=== PATIENT | female | born 1950 | race Caucasian/White ===

== ENCOUNTER 2022-05-02 09:17 | Day surgery (SDC) | payer MEDICARE ==
[~2022-05-02] VITALS: Ht 162.6 cm; Wt 88.1 kg
[2022-05-02] VITALS (8 sets, daily range): BP systolic 110–134; BP diastolic 46–61
[2022-05-02] MEDS ORDERED: normal saline 1000ml 1,000 ML IV SCH (09:44)
[2022-05-02] MEDS ORDERED: vancomycin 1,500 MG in NS 300ml IV soln IV ONE (09:45)
[2022-05-02] MEDS ORDERED: ceFAZolin inj. 2,000 MG in dextrose 5%-water 100 ML IV ONE (09:45)
[2022-05-02] MEDS ORDERED: ALBU17AE26 INH (09:52)
[2022-05-02] MEDS ORDERED: LEVO125T8 PO (09:52)
[2022-05-02] MEDS ORDERED: CARV25TA2 PO (09:52)
[2022-05-02] MEDS ORDERED: AMIT25TA9 PO (09:52)
[2022-05-02] MEDS ORDERED: HYDR-3972 PO (09:52)
[2022-05-02] MEDS ORDERED: FENO160T PO (09:52)
[2022-05-02] MEDS ORDERED: SUCR1TAB PO (09:52)
[2022-05-02] MEDS ORDERED: SPIR25TA5 PO (09:52)
[2022-05-02] MEDS ORDERED: UMEC1DIS INH (09:52)
[2022-05-02] MEDS ORDERED: ALPR0.255 PO (09:52)
[2022-05-02 10:06] LABS: BASOPHILS % (AUTO) 1.4 % (0-1); EOSINOPHILS # (AUTO) 0.1 X10'3 (0-0.9); EOSINOPHILS % (AUTO) 2.5 % (0-6); HEMATOCRIT 40.3 % (35.0-45.0); HEMOGLOBIN 13.9 g/dl (12.0-16.0); LYMPHOCYTES # (AUTO) 0.9 X10'3 (1.1-4.8); LYMPHOCYTES % (AUTO) 28.1 % (21-51); MEAN CORPUSCULAR HEMOGLOBIN 31.7 PG (27.0-31.0); MEAN CORPUSCULAR HGB CONC 34.6 g/dL (33.0-36.5); MEAN CORPUSCULAR VOLUME 91.6 FL (78-98); MONOCYTES # (AUTO) 0.4 X10'3 (0-0.9); MONOCYTES % (AUTO) 12.6 % (2-12); NEUTROPHILS # (AUTO) 1.9 X10'3 (1.8-7.7); NEUTROPHILS % (AUTO) 55.4 % (42-75); PLATELET COUNT 141 X10'3 (140-440); RED CELL DISTRIBUTION WIDTH 14.8 % (11.5-14.5); WHITE BLOOD COUNT 3.3 X10'3 (4.5-11.0)
[2022-05-02 10:16] LABS: ALBUMIN 3.2 G/DL (3.4-5.0); ANION GAP 10 (8-16); BLOOD UREA NITROGEN 25 MG/DL (7-18); BUN/CREATININE RATIO 12.8 (6.6-38.0); CALCIUM 8.8 MG/DL (8.5-10.1); CHLORIDE 100 MMOL/L (99-107); CREATININE 1.95 MG/DL (0.40-0.90); MAGNESIUM 1.7 MG/DL (1.5-2.4); POTASSIUM 4.4 MMOL/L (3.5-5.1); SODIUM 137 MMOL/L (135-145); TOTAL CARBON DIOXIDE 26.7 MMOL/L (24-32); eGFR 25 ML/MIN
[2022-05-02 10:21] LABS: GLUCOSE 92 MG/DL (70-104)
[2022-05-02] MEDS ORDERED: vancomycin 1,000mg inj ONE (12:06)
[2022-05-02] MEDS ORDERED: LIDOCAINE 2% w/EPI 1:100:000 30mL injection MDV**cath lab 1 only ONE (12:06)
[2022-05-02] MEDS ORDERED: fentaNYL/PF 50MCG/1 ML 2ML syringe ONE (12:06)
[2022-05-02] MEDS ORDERED: midazolam 1 mg/ML 2ml injection ONE ×5 (12:06→13:41)
[2022-05-02] MEDS ORDERED: HYDROmorphone 1 mg/ml syringe ONE (12:58)
== END 2022-05-02 16:00 | disposition home or self-care (01) ==
LOC: SSTAY O 09:17
PROVIDERS: ATTEND Internal Medicine Cardiovascular Disease
DX: I42.0 Dilated cardiomyopathy (principal); M19.90 Unspecified osteoarthritis, unspecified site; I35.1 Nonrheumatic aortic (valve) insufficiency; K21.9 Gastro-esophageal reflux disease without esophagitis; Z90.710 Acquired absence of both cervix and uterus; Z98.890 Other specified postprocedural states; Z79.899 Other long term (current) drug therapy; I13.0 Hypertensive heart and chronic kidney disease with heart failure and stage 1 through stage 4 chronic kidney disease, or unspecified chronic kidney disease; I50.22 Chronic systolic (congestive) heart failure; N18.9 Chronic kidney disease, unspecified
CPT/HCPCS: 33249; 36415; 71045; 80048; 83735; 85025; 85610; 93005; 93641; 99152; 99153; C1894; J1170; J2250; J3010; J3370; J3490; J7030; J7040; A4565; A4615; A4620; A6258